=== PATIENT | female | born 1975 | race Caucasian/White ===

== ENCOUNTER 2018-08-09 10:44 | Observation (INO) ==
[2018-08-09] MEDS ORDERED: Furosemide 40 MG/4 ML VIAL IVP ONE (11:09)
--- NOTE | 2018-08-09 11:13 | Emergency Department Note ---
Disposition Clinical Impression: Congestive heart failure, COPD (chronic obstructive pulmonary disease) Disposition: Admitted As Inpatient Condition: Fair Time of Disposition: 14:28 SOB HPI - General Chief Complaint: ED Shortness of Breath/Dyspnea Stated Complaint: julio cesar/swollen legs Time Seen by Provider: 08/09/18 11:01 - History of Present Illness Patient is a 22-year-old female who presents here to the emergency room with complaint of shortness of breath. The patient states she did also having leg swelling for 1 week. She states that shortness of breath especially for the past 2 days. She denies any chest pain. She does have a cough she states is productive at times of green sputum. She denies any abdominal pain. She denies any other back pain. She denies any other or GI complaints. She does have a mild frontal headache that she put at a 6 on a 10 scale. Nothing else makes her symptoms from her headache standpoint better or worse. The patient states exertion does make her shortness of breath worse. The patient is resting here in the emergency room drinking Mountain Dew. The patient denies any focal weakness or numbness. The patient does complain of pain into her lower extremities from the swelling as well. Patient is chronically on 2 L nasal cannula oxygen at home. She denies any sore throat, nasal congestion. - Related Data Home Medications Medication Instructions Recorded Confirmed Albuterol Sulfate [Ventolin Hfa] 2 puff PO Q4H PRN 09/27/17 08/09/18 Gabapentin [Neurontin] 600 mg PO TID 09/27/17 08/09/18 Methadone Oral Concentrate 90 mg PO DAILY 04/03/18 08/09/18 [Methadone] Cholecalciferol (D-3) [Vitamin D] 1,000 unit PO DAILY 04/04/18 08/09/18 Fluticasone/Vilanterol [Breo 1 puff IH DAILY 04/04/18 08/09/18 Ellipta 100-25 Mcg INH] guaiFENesin [Mucus Relief ER] 600 mg PO BID PRN 04/04/18 08/09/18 Cetirizine HCl [All Day Allergy] 10 mg PO DAILY 06/21/18 08/09/18 Fluticasone Propionate Nasal 2 spray NS DAILY PRN 06/21/18 08/09/18 [Flonase] Saline Nasal [place] [[place] Nasal 2 spray NS DAILY 06/21/18 08/09/18 [place]] Atenolol [Tenormin] 50 mg PO DAILY 08/09/18 08/09/18 Furosemide [Lasix] 20 mg PO DAILY 08/09/18 08/09/18 Allergies Allergy/AdvReac Type Severity Reaction Status Date / Time No Known Allergies Allergy Verified 06/21/18 15:50 Review of Systems: As mentioned per history of present illness and as follows. Constitutional: Negative for chills or fever HENT: Negative for sore throat. Eyes: Negative for visual disturbance Respiratory: Positive for shortness of breath. Cardiovascular: Negative for palpitations. Gastrointestinal: Negative for abdominal pain Genitourinary: Negative for dysuria Musculoskeletal: Negative for back pain. Skin: Negative for rash. Neurological: Negative for focal weakness Psychiatric/Behavioral: Negative for depression Past Medical History - Past Medical History Medical history: Reports: COPD, hypertension Surgical history: Reports: Psychiatric history: Reports: anxiety, depression - Social History Smoking Status: Current every day smoker Smokeless Tobacco Status: No Alcohol use: Reports: none Drug use: Reports: opiates, prescription drug abuse Physical Exam PHYSICAL EXAM Constitutional: Well developed, Well nourished, No acute distress, Non-toxic appearance. HENT: Normocephalic, Atraumatic, Bilateral external ears normal, Oropharynx moist, No oral exudates, Nose normal. Neck- Normal range of motion, No tenderness, Supple. Eyes: PERRL, EOMI, Conjunctiva normal,. Cardiovascular: Regular rate and rhythm without clicks, rubs, gallops or murmurs. Respiratory: Normal breath sounds, mild respiratory distress, the patient has had no wheezing, scattered rhonchi noted, no crackles appreciated.. GI: Soft, nontender, no evidence of guarding or peritoneal signs. Bowel sounds are active. Musculoskeletal: Good range of motion in all major joints. No tenderness to palpation or major deformities noted. +5/5 strength noted to all extremities. Integument: Warm, Dry, No erythema, No rash. +2 pretibial edema bilateral lower extremities Neurologic: Alert & oriented x 3, Normal sensory function, No focal deficits noted. CN II-XII grossly intact. Course Vital Signs Temperature 97.7 F 08/09/18 10:50 Pulse Rate 80 08/09/18 10:50 Respiratory Rate 26 08/09/18 10:50 Blood Pressure 121/82 08/09/18 10:50 O2 Sat by Pulse Oximetry 75 08/09/18 10:50 Temperature 97.7 F 08/09/18 10:56 Pulse Rate 58 08/09/18 13:59 Respiratory Rate 16 08/09/18 13:59 Blood Pressure 134/88 08/09/18 13:59 O2 Sat by Pulse Oximetry 99 08/09/18 13:59 Oxygen Delivery Oxygen Delivery Nasal Cannula Shortness of Breath/Dyspnea - [facility] Narrative Medical decision making narrative: EKG was performed that showed sinus rhythm 65 beats a minute, no evidence of ST elevation or depression. [place] and QT intervals do appear to be within normal limits. Interpreted by myself. Patient was getting significantly hypoxic with ambulation. At this time the patient was also given Lasix, she was given breathing treatment. The patient however does not have sniffed and wheezing. Do not believe the patient has for steroids or antibiotics at this time. The patient has a negative chest x-ray. The patient does have a slightly elevated BNP. There is no evidence of cardiac ischemia. The patient at this point, do believe needs to be admitted for further evaluation regarding her hypoxia is fussy with exertion. The patient is on chronically 2 L. The patient is minimally retaining. Patient did have case discussed with the hospitalist and the patient will be admitted in stable condition to the floor. Final impression 1. Congestive heart failure 2. COPD 3. Mild hypercarbia - Lab Data Result diagrams: 08/09/18 11:16 08/09/18 11:16 Lab Results 08/09/18 08/09/18 08/09/18 Range/Units 11:16 11:16 11:16 WBC 7.5 (4.3-11.1) K/mcL RBC 5.16 H (3.82-4.97) M/mcL Hgb 15.4 (11.5-15.4) g/dL Hct 48.4 H (35.3-44.9) % MCV 93.8 (83.0-100.0) fL MCH 29.8 (28.0-33.3) pg MCHC 31.8 (31.6-35.5) g/dL RDW 14.7 H (11.5-14.5) % Plt Count 185 (140-400) K/mcL MPV 10.8 (9.4-12.4) fL Immature Gran % 0.3 (0-4) % Seg Neutrophils % 47.6 % Lymphocytes % 36.9 % Monocytes % 12.1 % Eosinophils % 2.4 % Basophils % 0.7 % Neutrophils # 3.6 (1.6-8.9) K/mcL Lymphocytes # 2.8 (0.6-4.6) K/mcL Monocytes # 0.9 (0.0-1.3) K/mcL Eosinophils # 0.2 (0.0-0.6) K/mcL Basophils # 0.1 (0.0-0.2) K/mcL PT 11.9 (9.4-12.1) Seconds INR 1.0 VBG pH (7.32-7.42) pH Units VBG pCO2 (41-51) mmHg VBG pO2 (25-50) mmHg VBG HCO3 (21-27) mEq/L Sodium 136 (136-145) mEq/L Potassium 3.9 (3.5-5.1) mEq/L Chloride 104 (98-107) mEq/L Carbon Dioxide 29 (23-29) mEq/L BUN 7 (6-20) mg/dL Creatinine 1.03 (0.60-1.20) mg/dL Est GFR ( Amer) > 60 (> 60) Est GFR (Non-Af Amer) 58 L (> 60) BUN/Creatinine Ratio 7 (6-26) Glucose 86 (70-105) mg/dL Calculated Osmolality 279 L (280-300) Lactic Acid (0.5-2.2) mmol/L Calcium 9.3 (8.6-10.3) mg/dL Troponin I < 0.03 (< 0.04) ng/mL B-Natriuretic Peptide (Less than 100) pg/mL 08/09/18 08/09/18 08/09/18 Range/Units 11:16 11:16 11:39 WBC (4.3-11.1) K/mcL RBC (3.82-4.97) M/mcL Hgb (11.5-15.4) g/dL Hct (35.3-44.9) % MCV (83.0-100.0) fL MCH (28.0-33.3) pg MCHC (31.6-35.5) g/dL RDW (11.5-14.5) % Plt Count (140-400) K/mcL MPV (9.4-12.4) fL Immature Gran % (0-4) % Seg Neutrophils % % Lymphocytes % % Monocytes % % Eosinophils % % Basophils % % Neutrophils # (1.6-8.9) K/mcL Lymphocytes # (0.6-4.6) K/mcL Monocytes # (0.0-1.3) K/mcL Eosinophils # (0.0-0.6) K/mcL Basophils # (0.0-0.2) K/mcL PT (9.4-12.1) Seconds INR VBG pH 7.34 (7.32-7.42) pH Units VBG pCO2 52 H (41-51) mmHg VBG pO2 71 H (25-50) mmHg VBG HCO3 28 H (21-27) mEq/L Sodium (136-145) mEq/L Potassium (3.5-5.1) mEq/L Chloride (98-107) mEq/L Carbon Dioxide (23-29) mEq/L BUN (6-20) mg/dL Creatinine (0.60-1.20) mg/dL Est GFR ( Amer) (> 60) Est GFR (Non-Af Amer) (> 60) BUN/Creatinine Ratio (6-26) Glucose (70-105) mg/dL Calculated Osmolality (280-300) Lactic Acid 0.6 (0.5-2.2) mmol/L Calcium (8.6-10.3) mg/dL Troponin I (< 0.04) ng/mL B-Natriuretic Peptide 110 H (Less than 100) pg/mL
[2018-08-09 11:31] LABS: Basophils # 0.1 K/mcL (0.0-0.2); Basophils % 0.7 %; Eosinophils # 0.2 K/mcL (0.0-0.6); Eosinophils % 2.4 %; Hematocrit 48.4 % (35.3-44.9); Hemoglobin 15.4 g/dL (11.5-15.4); Immature Granulocytes % 0.3 % (0-4); Lymphocytes # 2.8 K/mcL (0.6-4.6); Lymphocytes % 36.9 %; Mean Corpuscular HGB Conc 31.8 g/dL (31.6-35.5); Mean Corpuscular Hemoglobin 29.8 pg (28.0-33.3); Mean Corpuscular Volume 93.8 fL (83.0-100.0); Mean Platelet Volume 10.8 fL (9.4-12.4); Monocytes # 0.9 K/mcL (0.0-1.3); Monocytes % 12.1 %; Neutrophils # 3.6 K/mcL (1.6-8.9); Platelet Count 185 K/mcL (140-400); Red Blood Count 5.16 M/mcL (3.82-4.97); Red Cell Distribution Width 14.7 % (11.5-14.5); Segmented Neutrophils % 47.6 %; White Blood Count 7.5 K/mcL (4.3-11.1)
[2018-08-09] MEDS ORDERED: Ipratropium/Albuterol Neb 3 ML IH ONE (11:37)
[2018-08-09 11:42] LABS: VBG HCO3 28 mEq/L (21-27); VBG PCO2 52 mmHg (41-51); VBG PH 7.34 pH Units (7.32-7.42); VBG PO2 71 mmHg (25-50)
[2018-08-09 11:43] LABS: Prothrombin Time 11.9 Seconds (9.4-12.1)
[2018-08-09 11:51] LABS: BUN/Creatinine Ratio 7 (6-26); Blood Urea Nitrogen 7 mg/dL (6-20); Calcium 9.3 mg/dL (8.6-10.3); Carbon Dioxide 29 mEq/L (23-29); Chloride 104 mEq/L (98-107); Glucose 86 mg/dL (70-105); Osmolality,Calculated 279 (280-300); Potassium 3.9 mEq/L (3.5-5.1); Sodium 136 mEq/L (136-145); eGFR For African Americans > 60 (> 60); eGFR For Non-African Americans 58 (> 60)
[2018-08-09 11:52] LABS: Troponin I < 0.03 ng/mL (< 0.04)
--- NOTE | 2018-08-09 15:22 | Electrocardiograph Report ---
[address] [place], [place] [address] Test Date: 2018-08-09 Pat Name: Tessie De La Torre Department: [id number] Room: 3B37 Gender: F Linotyper: : 1975 Requested By: [id number] Order Number: [id number] Reading MD: Misty Betts Measurements Intervals [place] Rate: 65 P: 63 NM: 146 QRS: 73 QRSD: 107 T: 51 QT: 424 QTc: 441 Interpretive Statements Sinus rhythm Electronically Signed On 08-09-2018 15:20:36 EDT by Misty Betts
[2018-08-09] MEDS ORDERED: Naloxone 0.4 MG/ML INJ IVP PRN (16:55)
[2018-08-09] MEDS ORDERED: *HR* HYDROcodone/Acet 5/325 mg TABLET PO PRN (16:55)
[2018-08-09] MEDS ORDERED: Ondansetron 4 MG/2 ML VIAL IVP PRN (16:55)
[2018-08-09] MEDS ORDERED: Acetaminophen 325 MG TABLET PO PRN (16:55)
[2018-08-09] MEDS ORDERED: Albuterol 2.5 MG/3 ML NEBULIZER IH PRN (17:06)
--- NOTE | 2018-08-09 17:30 | Internal Med History&Physical ---
Date of Encounter: 08/09/18 Time of Encounter: 17:11 Internal Medicine - H&P: HPI Chief complaint: sob Admitted From: Emergency Dept Plans for Post Hospital Care: Home History of present illness: Ms. De La Torre is a 42 year old female astragal history of hypertension COPD oxygen dependent current smoker. Patient presented to [facility] ED with complaints of shortness of breath. Patient states she has been experiencing increasing shortness of breath over the past 2 weeks and has noticed lower extremity swelling laterally for the past week. She also states that she has gained approximately 7 pounds in the past week. She does have a productive cough with green sputum but no fever or abdominal pain. She states that they shortness of breath is worse on exertion and at times he has difficulty performing her ADLs. She does take Lasix for lower extremity swelling and states she has been compliant with medications. In the ER chest x-ray was completed which showed no acute process lab work did show a slightly elevation in BMP patient was given a dose of IV Lasix has been admitted for further workup and evaluation. Currently patient does not appear to be in any respiratory distress. She denies any chest pain or shortness of breath. I did discuss CODE STATUS with the patient would like to be full code. Past Med Surg Social Fam HX - Past Medical History Medical history: CHF, COPD, hypertension Additional medical history: unknown- pt refused to answer Psychiatric history: anxiety, depression - Past Surgical History Surgical History: - Social History Smoking Status: Current every day smoker Packs per day: 1 Smokeless Tobacco Status: No Alcohol use: none Drug use: none - Family History Mother Hx Family Respiratory Disorders: Yes Father Hx Family Cardiac Disorders: Yes Hx Family Respiratory Disorders: Yes Hx Family Endocrine Disorder: Yes Internal Medicine - H&P: Meds Albuterol Sulfate [Ventolin Hfa] 2 puff PO Q4H PRN 09/27/17 [History] Gabapentin [Neurontin] 600 mg PO TID 09/27/17 [History] Methadone Oral Concentrate [Methadone] 90 mg PO DAILY 04/03/18 [History] Cholecalciferol (D-3) [Vitamin D] 1,000 unit PO DAILY 04/04/18 [History] Fluticasone/Vilanterol [Breo Ellipta 100-25 Mcg INH] 1 puff IH DAILY 04/04/18 [ History] guaiFENesin [Mucus Relief ER] 600 mg PO BID PRN 04/04/18 [History] Cetirizine HCl [All Day Allergy] 10 mg PO DAILY 06/21/18 [History] Fluticasone Propionate Nasal [Flonase] 2 spray NS DAILY PRN 06/21/18 [History] Saline Nasal [place] [[place] Nasal [place]] 2 spray NS DAILY 06/21/18 [History] Atenolol [Tenormin] 50 mg PO DAILY 08/09/18 [History] Furosemide [Lasix] 20 mg PO DAILY 08/09/18 [History] Allergy/AdvReac Type Severity Reaction Status Date / Time No Known Allergies Allergy Verified 06/21/18 15:50 All Systems PM: A 10-system review of systems was performed and is negative for pertinent findings except as documented above in the HPI. - Constitutional Constitutional: weight gain - EENT Eyes: no change in vision, no discharge, no pain, no photophobia Ears: no ear discharge, no ear pain, no tinnitus Nose, mouth and throat: no dysphagia, no nasal discharge, no neck pain, no sore throat - Cardiovascular Cardiovascular ROS IM: dyspnea, dyspnea on exertion, edema, no chest pain, no diaphoresis, no lightheadedness, no palpitations, no syncope - Respiratory Respiratory: cough - Gastrointestinal Gastrointestinal: no abdominal pain, no diarrhea, no hematemesis, no hematoche dora, no melena, no nausea, no vomiting - Genitourinary Genitourinary: no change in urinary stream, no dysuria, no flank pain, no hematuria - Musculoskeletal Musculoskeletal ROS IM: no numbness, no tingling - Integumentary Integumentary IM: no rash, no unusual bruising - Neurological Neurological ROS: no confusion, no convulsions, no focal weakness, no numbness, no tingling, no tremor(s) - Hematologic/Lymphatic Hematologic/Lymphatic: no easy bruising - Constitutional Vitals: Temp Pulse Resp BP Pulse Ox 97.9 F 60 16 144/96 98 08/09/18 15:04 08/09/18 15:04 08/09/18 15:04 08/09/18 15:04 08/09/18 15:04 Exam: Skin: Free of rash and discoloration. Eyes: Sclera is white. There is no discharge from eyes. ENMT: Oral/pharyngeal mucosa is normal in appearance. There is no discharge from nose or ears. Respiratory: Some scattered rhonchi throughout CV: Heart is regular with no gallop or murmur. Bilateral lower extremity edema +1 GI: Abdomen is flat and soft with no palpable mass or visceromegaly. : There is no tenderness in patient's flanks bilaterally. Neuro exam: He has good strength in upper and lower extremities. He has normal eye movements. Psychiatric: He has normal affect. His thought process is appropriate to the situation. Internal Med - H&P Results - Labs CBC & Chem 7: 08/09/18 11:16 08/09/18 11:16 Labs: Short CBC 08/09/18 Range/Units 11:16 WBC 7.5 (4.3-11.1) K/mcL Hgb 15.4 (11.5-15.4) g/dL Hct 48.4 H (35.3-44.9) % Plt Count 185 (140-400) K/mcL Neutrophils # 3.6 (1.6-8.9) K/mcL BMP 08/09/18 11:16 Sodium 136 Potassium 3.9 Chloride 104 Carbon Dioxide 29 BUN 7 Creatinine 1.03 Glucose 86 Calcium 9.3 Cardiac Enzymes 08/09/18 Range/Units 11:16 Troponin I < 0.03 (< 0.04) ng/mL - ABG Interpretation ABG results: 08/09/18 11:39 VBG pH 7.34 VBG pCO2 52 H VBG pO2 71 H VBG HCO3 28 H - Impressions ITS Impressions Chest X-Ray 08/09/18 11:02 IMPRESSION: No acute process. D/ / Paresh Howard MD / Paresh oHward MD Interpreting Provider: Paresh Howard MD - Assessment and Plan (1) Congestive heart failure Current Visit: Yes Status: Suspected Assessment and plan: Patient has been experiencing increasing shortness of breath over the past 2 weeks and lower extremity edema bilaterally for past week. She is on Lasix for lower extremity swelling and states she has been taking it without any improvement Cardiac echo completed 06/21/18 mpressions: LVEF 60-65%. Mild left ventricular diastolic dysfunction. Normal right ventricular structure and function. Mild mitral regurgitation. Mild tricuspid regurgitation. No pulmonary hypertension. -We will continue with IV Lasix 40 mg daily -Fluid restriction Monitor intake and output daily weights Low Sodium diet Continuous cardiac monitoring Continue with oxygen Obtain limited echo We will check hepatic panel due to lower extremity swelling inpatient history of IV drug use-no history of hepatitis Qualifiers: Heart failure type: unspecified Heart failure chronicity: acute on chronic Qualified Code(s): I50.9 - Heart failure, unspecified (2) COPD (chronic obstructive pulmonary disease) Current Visit: No Status: Chronic Assessment and plan: Patient has a history of COPD and is oxygen dependent on 2 L nasal cannula at home. She does have cough with green sputum no fever chest x-ray with nothing acute. No wheezing noted does not appear to be in exacerbation at this time. We will continue with bronchodilators and oxygen to maintain SPO2 greater than 90% Qualifiers: COPD type: unspecified COPD Qualified Code(s): J44.9 - Chronic obstructive pulmonary disease, unspecified (3) DVT prophylaxis Current Visit: No Status: Acute Assessment and plan: Lovenox subcutaneous (4) Current every day smoker Current Visit: No Status: Chronic Assessment and plan: Patient states that she is trying to quit and she is down to half pack a day we will place a nicotine patch (5) HTN (hypertension) Current Visit: No Status: Chronic Assessment and plan: Currently controlled continue with home medications Qualifiers: Hypertension type: essential hypertension Qualified Code(s): I10 - Essential (primary) hypertension (6) History of substance abuse Current Visit: No Status: Chronic Assessment and plan: Patient states that she has a history of hair when use last used 2 years ago currently on methadone which we will continue We will check hepatic panel-states no history of hepatitis - Time Spent With Patient Total time spent is greater than 50% in coordination of care (as documented) at patient's floor/unit and/or counseling patient:
[2018-08-09] MEDS: Nicotine 14 MG PATCH.TD24 TD SCH (18:01)
[2018-08-09] MEDS: Gabapentin 300 MG CAPSULE PO SCH (23:00)
[2018-08-10 01:46] LABS: Basophils # 0.1 K/mcL (0.0-0.2); Basophils % 0.7 %; Eosinophils # 0.2 K/mcL (0.0-0.6); Eosinophils % 2.5 %; Hematocrit 44.4 % (35.3-44.9); Hemoglobin 13.9 g/dL (11.5-15.4); Immature Granulocytes % 0.3 % (0-4); Lymphocytes # 2.9 K/mcL (0.6-4.6); Lymphocytes % 42.9 %; Mean Corpuscular HGB Conc 31.3 g/dL (31.6-35.5); Mean Corpuscular Hemoglobin 29.6 pg (28.0-33.3); Mean Corpuscular Volume 94.5 fL (83.0-100.0); Mean Platelet Volume 11.2 fL (9.4-12.4); Monocytes # 0.9 K/mcL (0.0-1.3); Monocytes % 13.2 %; Neutrophils # 2.7 K/mcL (1.6-8.9); Platelet Count 162 K/mcL (140-400); Red Cell Distribution Width 14.6 % (11.5-14.5); Segmented Neutrophils % 40.4 %; White Blood Count 6.7 K/mcL (4.3-11.1)
[2018-08-10 02:28] LABS: Albumin 3.1 g/dL (3.5-5.7); Albumin/Globulin Ratio 1.3 (1.1-2.2); Bilirubin,Direct 0.1 mg/dL (0.0-0.2); Bilirubin,Indirect 0.3 mg/dL (0.0-1.2); Bilirubin,Total 0.4 mg/dL (0.3-1.0); Globulin 2.4 g/dL (2.4-3.5); Total Protein 5.5 g/dL (6.4-8.9)
[2018-08-10 02:30] LABS: BUN/Creatinine Ratio 7 (6-26); Blood Urea Nitrogen 9 mg/dL (6-20); Calcium 8.7 mg/dL (8.6-10.3); Carbon Dioxide 31 mEq/L (23-29); Chloride 102 mEq/L (98-107); Glucose 105 mg/dL (70-105); Magnesium 1.7 mg/dL (1.6-2.6); Osmolality,Calculated 285 (280-300); Potassium 3.7 mEq/L (3.5-5.1); Sodium 138 mEq/L (136-145); Troponin I < 0.03 ng/mL (< 0.04); eGFR For African Americans 59 (> 60); eGFR For Non-African Americans 48 (> 60)
[2018-08-10] MEDS ORDERED: *HR* Enoxaparin 40 MG/0.4 ML SYRINGE SQ SCH (07:00)
[2018-08-10] MEDS: Gabapentin 300 MG CAPSULE PO SCH ×3 (08:14→20:37)
[2018-08-10] MEDS: Methadone Oral Concentrate 50 MG/5 ML UDC PO SCH (08:14)
[2018-08-10] MEDS: Nicotine 14 MG PATCH.TD24 TD SCH (08:14)
[2018-08-10] MEDS: Budesonide/Formoterol 160/4.5 1 PUFF INH IH SCH ×2 (08:15→20:16)
[2018-08-10] MEDS ORDERED: Furosemide 40 MG/4 ML VIAL IVP SCH (09:00)
[2018-08-10 12:23] LABS: Calcium 8.9 mg/dL (8.6-10.3); Potassium 3.8 mEq/L (3.5-5.1)
[2018-08-10] MEDS ORDERED: 0.9 % Sodium Chloride 500 ML IVC SCH (15:15)
--- NOTE | 2018-08-10 15:21 | Internal Med Progress Note ---
Hospitalist Progress Note - Encounter Date of Encounter: 08/10/18 Time of Encounter: 10:00 - Subjective Interval History: patient was seen and examined at bedside Currently She states she feels much better and that her swelling has improved. Reviewed labwork including renal functions Informed her that we will monitor closely and encourage her to drink some water. Patient verbalizes understanding - Exam Vitals: Temp Pulse Resp BP Pulse Ox 98.1 F 63 16 94/67 96 08/10/18 14:49 08/10/18 14:49 08/10/18 14:49 08/10/18 14:49 08/10/18 14:49 Exam: Skin: Free of rash and discoloration. Eyes: Sclera is white. There is no discharge from eyes. ENMT: Oral/pharyngeal mucosa is normal in appearance. There is no discharge from nose or ears. Respiratory: Some scattered rhonchi throughout CV: Heart is regular with no gallop or murmur. Bilateral lower extremity edema +1 GI: Abdomen is flat and soft with no palpable mass or visceromegaly. : There is no tenderness in patient's flanks bilaterally. Neuro exam: He has good strength in upper and lower extremities. He has normal eye movements. Psychiatric: He has normal affect. His thought process is appropriate to the situation. - Assessment and Plan (1) Congestive heart failure Current Visit: Yes Status: Suspected Assessment and Plan: Patient has been experiencing increasing shortness of breath over the past 2 weeks and lower extremity edema bilaterally for past week. She is on Lasix for lower extremity swelling and states she has been taking it without any impr ovement Cardiac echo completed 06/21/18 mpressions: LVEF 60-65%. Mild left ventricular diastolic dysfunction. Normal right ventricular structure and function. Mild mitral regurgitation. Mild tricuspid regurgitation. No pulmonary hypertension. -We will continue with IV Lasix 40 mg daily -Fluid restriction Monitor intake and output daily weights Low Sodium diet Continuous cardiac monitoring Continue with oxygen Obtain limited echo We will check hepatic panel due to lower extremity swelling inpatient history of IV drug use-no history of hepatitis 08/10/2018 No edema noted to lower extremities we will monitor I/O Hold lasix for now dt ADDISON hepatic panel WNL (2) COPD (chronic obstructive pulmonary disease) Current Visit: No Status: Chronic Assessment and Plan: Patient has a history of COPD and is oxygen dependent on 2 L nasal cannula at home. She does have cough with green sputum no fever chest x-ray with nothing acute. No wheezing noted does not appear to be in exacerbation at this time. We will continue with bronchodilators and oxygen to maintain SPO2 greater than 90% 08/10 Patient appears stable cont with oxygen and bronchodilators (3) DVT prophylaxis Current Visit: No Status: Acute Assessment and Plan: Lovenox subcutaneous (4) Current every day smoker Current Visit: No Status: Chronic Assessment and Plan: Patient states that she is trying to quit and she is down to half pack a day we will place a nicotine patch (5) HTN (hypertension) Current Visit: No Status: Chronic Assessment and Plan: Currently controlled continue with home medications (6) History of substance abuse Current Visit: No Status: Chronic Assessment and Plan: Patient states that she has a history of hair when use last used 2 years ago currently on methadone which we will continue We will check hepatic panel-states no history of hepatitis 08/10 hepatic panel WNL - Time Spent with Patient Total time spent is greater than 50% in coordination of care (as documented) at patient's floor/unit and/or counseling patient: Internal Medicine: Result - Labs CBC & Chem 7: 08/10/18 00:49 08/10/18 11:17 Labs: Short CBC 08/10/18 Range/Units 00:49 WBC 6.7 (4.3-11.1) K/mcL Hgb 13.9 D (11.5-15.4) g/dL Hct 44.4 (35.3-44.9) % Plt Count 162 (140-400) K/mcL Neutrophils # 2.7 (1.6-8.9) K/mcL BMP 08/10/18 08/10/18 00:49 11:17 Sodium 138 140 Potassium 3.7 3.8 Chloride 102 98 Carbon Dioxide 31 H 34 H BUN 9 7 Creatinine 1.21 H 1.31 H Glucose 105 96 Calcium 8.7 8.9 Cardiac Enzymes 08/10/18 Range/Units 00:49 Troponin I < 0.03 (< 0.04) ng/mL Liver Function 08/10/18 Range/Units 00:49 Total Bilirubin 0.4 (0.3-1.0) mg/dL Direct Bilirubin 0.1 (0.0-0.2) mg/dL AST 18 (13-39) Units/L ALT 12 (7-52) Units/L Alkaline Phosphatase 87 (34-104) Units/L Albumin 3.1 L (3.5-5.7) g/dL - ABG Interpretation ABG results: PT/INR, D-dimer PT 11.9 Seconds (9.4-12.1) 08/09/18 11:16 Consult Discharge Plan - Plan Referrals: Yoana Moe [Primary Care Provider] - (1) Congestive heart failure Qualifiers: Heart failure type: unspecified Heart failure chronicity: acute on chronic Qualified Code(s): I50.9 - Heart failure, unspecified (2) COPD (chronic obstructive pulmonary disease) Qualifiers: COPD type: unspecified COPD Qualified Code(s): J44.9 - Chronic obstructive pulmonary disease, unspecified (5) HTN (hypertension) Qualifiers: Hypertension type: essential hypertension Qualified Code(s): I10 - Essential (primary) hypertension
[2018-08-11 05:59] LABS: BUN/Creatinine Ratio 9 (6-26); Blood Urea Nitrogen 11 mg/dL (6-20); Calcium 8.6 mg/dL (8.6-10.3); Carbon Dioxide 32 mEq/L (23-29); Chloride 102 mEq/L (98-107); Glucose 107 mg/dL (70-105); Osmolality,Calculated 282 (280-300); Potassium 4.1 mEq/L (3.5-5.1); Sodium 136 mEq/L (136-145); eGFR For African Americans > 60 (> 60); eGFR For Non-African Americans 50 (> 60)
[2018-08-11 07:38] VITALS: BP 112/65
[2018-08-11] MEDS: Gabapentin 300 MG CAPSULE PO SCH (08:11)
[2018-08-11] MEDS: Nicotine 14 MG PATCH.TD24 TD SCH (08:12)
[2018-08-11] MEDS: Methadone Oral Concentrate 50 MG/5 ML UDC PO SCH (08:12)
[2018-08-11] MEDS: Budesonide/Formoterol 160/4.5 1 PUFF INH IH SCH (08:27)
--- NOTE | 2018-08-11 10:59 | Discharge Summary ---
- NOTES TO OUTPATIENT PROVIDER Notes to Outpatient Provider: lower extremity swelling - patient was given IV lasix x1 - developed ADDISON - given small fluid bouls and ADDISON resolved. will need to monitor chemistry- advised patient to monitor daily weight low Na diet Orders not resulted at time of discharge: Pending orders 08/09/18 11:15 Culture,Blood [BC] Stat 08/10/18 15:23 EV limited echocardiogram Routine Date of Encounter: 08/11/18 Time of Encounter: 10:57 - Discharge Diagnosis (1) Congestive heart failure Priority: Primary Status: Suspected Qualifiers: Heart failure type: unspecified Heart failure chronicity: acute on chronic Qualified Code(s): I50.9 - Heart failure, unspecified (2) COPD (chronic obstructive pulmonary disease) Priority: Secondary Status: Chronic Qualifiers: COPD type: unspecified COPD Qualified Code(s): J44.9 - Chronic obstructive pulmonary disease, unspecified (3) Current every day smoker Priority: Secondary Status: Chronic (4) HTN (hypertension) Priority: Secondary Status: Chronic Qualifiers: Hypertension type: essential hypertension Qualified Code(s): I10 - Essential (primary) hypertension (5) History of substance abuse Priority: Secondary Status: Chronic Hospital course: Ms. De La Torre is a 42 year old female history of hypertension COPD oxygen dependent current smoker. Patient presented to [facility] ED with complaints of shortness of breath. Patient states she has been experiencing increasing shortness of breath over the past 2 weeks and has noticed lower extremity swelling laterally for the past week. She also states that she has gained approximately 7 pounds in the past week. She does have a productive cough with green sputum but no fever or abdominal pain. She states that they shortness of breath is worse on exertion and at times he has difficulty performing her ADLs. She does take Lasix for lower extremity swelling and states she has been compliant with medications. In the ER chest x-ray was completed which showed no acute process lab work did show a slightly elevation in BMP patient was given a dose of IV Lasix has been admitted. During admission patient did develop and AK I Lasix was held and patient was given small IV fluid bolus which did improve renal function. Lower extremity swelling has improved patient's ambulating without difficulty. Patient was advised to consume a low sodium diet as well as monitor daily weights continue with home Lasix. She will follow-up primary care provider monitor chemistry as an outpatient. Patient verbalizes understanding she is hemodynamically stable at this time and she is ready for discharge. - Time Spent with Patient Total time spent providing and/or coordinating discharge services: - Discharge Medications Prescriptions: Continued Albuterol Sulfate [Ventolin Hfa] 2 puff PO Q4H PRN PRN Reason: Shortness Of Breath Gabapentin [Neurontin] 600 mg PO TID Methadone Oral Concentrate [Methadone] 90 mg PO DAILY Cholecalciferol (D-3) [Vitamin D] 1,000 unit PO DAILY Fluticasone/Vilanterol [Breo Ellipta 100-25 Mcg INH] 1 puff IH DAILY guaiFENesin [Mucus Relief ER] 600 mg PO BID PRN PRN Reason: CHEST CONGESTION Cetirizine HCl [All Day Allergy] 10 mg PO DAILY Fluticasone Propionate Nasal [Flonase] 2 spray NS DAILY PRN PRN Reason: Allergy Symptoms Saline Nasal [place] [Briny [place]reezes Nasal [place]] 2 spray NS DAILY PRN PRN Reason: Congestion Furosemide [Lasix] 20 mg PO DAILY Atenolol [Tenormin] 50 mg PO DAILY Home Medications: Albuterol Sulfate [Ventolin Hfa] 2 puff PO Q4H PRN 09/27/17 [History] Gabapentin [Neurontin] 600 mg PO TID 09/27/17 [History] Methadone Oral Concentrate [Methadone] 90 mg PO DAILY 04/03/18 [History] Cholecalciferol (D-3) [Vitamin D] 1,000 unit PO DAILY 04/04/18 [History] Fluticasone/Vilanterol [Breo Ellipta 100-25 Mcg INH] 1 puff IH DAILY 04/04/18 [History] guaiFENesin [Mucus Relief ER] 600 mg PO BID PRN 04/04/18 [History] Cetirizine HCl [All Day Allergy] 10 mg PO DAILY 06/21/18 [History] Fluticasone Propionate Nasal [Flonase] 2 spray NS DAILY PRN 06/21/18 [History] Saline Nasal [place] [[place]ree[place] Nasal [place]] 2 spray NS DAILY PRN 06/21/18 [History] Atenolol [Tenormin] 50 mg PO DAILY 08/09/18 [History] Furosemide [Lasix] 20 mg PO DAILY 08/09/18 [History] Allergies/Adverse Reactions: Allergy/AdvReac Type Severity Reaction Status Date / Time No Known Allergies Allergy Verified 06/21/18 15:50 Date of admission: 08/09/18 13:58 Primary care physician: Yoana Moe Discharging clinician: Ligia Monteiro Anticipated date of discharge: 08/11/18 - Constitutional Vitals: Temp Pulse Resp BP Pulse Ox 97.4 F L 71 17 112/65 98 08/11/18 07:27 08/11/18 07:27 08/11/18 08:29 08/11/18 07:27 08/11/18 08:29 Exam: Skin: Free of rash and discoloration. Eyes: Sclera is white. There is no discharge from eyes. ENMT: Oral/pharyngeal mucosa is normal in appearance. There is no discharge from nose or ears. Respiratory: Normal breath sounds with no crackles and wheezes bilaterally. CV: Heart is regular with no gallop or murmur. GI: Abdomen is flat and soft with no palpable mass or visceromegaly. : There is no tenderness in patient's flanks bilaterally. Neuro exam: He has good strength in upper and lower extremities. He has normal eye movements. Psychiatric: He has normal affect. His thought process is appropriate to the situation. - Patient Status Disposition: Home, Self-Care Condition: Fair Functional capacity at discharge: independent ambulation - Discharge Instructions Follow Up With: Yoana Moe [Primary Care Provider] - - Diet and Activity Activity: increase activity as tolerated Diet: low salt diet
== END 2018-08-11 11:51 | disposition home or self-care (01) ==
LOC: EMEROOARM 10:44 → 3BNU 10:44
PROVIDERS: ADMIT Internal Medicine; ATTEND Internal Medicine

== ENCOUNTER 2020-05-10 18:42 | Observation (INO) ==
[2020-05-10] MEDS ORDERED: 0.9 % Sodium Chloride 1,000 ML IVC ONE (20:10)
[2020-05-10 20:32] LABS: Basophils # 0.1 K/mcL (0.0-0.2); Basophils % 0.5 %; Eosinophils # 0.3 K/mcL (0.0-0.6); Eosinophils % 2.5 %; Hemoglobin 12.4 g/dL (11.5-15.4); Immature Granulocytes % 0.2 % (0-4); Lymphocytes # 2.4 K/mcL (0.6-4.6); Lymphocytes % 21.5 %; Mean Corpuscular HGB Conc 30.2 g/dL (31.6-35.5); Mean Corpuscular Hemoglobin 28.8 pg (28.0-33.3); Mean Corpuscular Volume 95.1 fL (83.0-100.0); Mean Platelet Volume 10.6 fL (9.4-12.4); Monocytes # 0.9 K/mcL (0.0-1.3); Monocytes % 8.4 %; Neutrophils # 7.4 K/mcL (1.6-8.9); Platelet Count 204 K/mcL (140-400); Red Blood Count 4.31 M/mcL (3.82-4.97); Red Cell Distribution Width 12.8 % (11.5-14.5); Segmented Neutrophils % 66.9 %; White Blood Count 11.1 K/mcL (4.3-11.1)
[2020-05-10 20:48] LABS: Bilirubin,Urine Negative (Negative); Blood,Urine Negative (Negative); Clarity,Urine Clear (Clear); Color,Urine Light-Yellow (Yellow); Glucose,Urine (UA) Normal (Normal); Ketones,Urine Negative (Negative); Leukocyte Esterase,Urine Negative (Negative); Nitrite,Urine Negative (Negative); Protein,Urine Negative (Neg-Trace); Specific Gravity,Urine 1.017 (1.010-1.025); Urobilinogen,Urine Normal (Normal)
[2020-05-10 20:55] LABS: Alanine Aminotransferase 14 Units/L (7-52); Albumin 3.6 g/dL (3.5-5.7); Albumin/Globulin Ratio 1.1 (1.1-2.2); Alkaline Phosphatase 109 Units/L (34-104); Aspartate Amino Transferase 26 Units/L (13-39); BUN/Creatinine Ratio 12 (6-26); Bilirubin,Total 0.4 mg/dL (0.3-1.0); Blood Urea Nitrogen 12 mg/dL (6-20); Calcium 9.7 mg/dL (8.6-10.3); Carbon Dioxide 38 mEq/L (23-29); Chloride 95 mEq/L (98-107); Globulin 3.3 g/dL (2.4-3.5); Glucose 113 mg/dL (70-105); Osmolality,Calculated 283 (280-300); Potassium 4.5 mEq/L (3.5-5.1); Sodium 136 mEq/L (136-145); Total Protein 6.9 g/dL (6.4-8.9); eGFR For African Americans > 60 (> 60); eGFR For Non-African Americans 58 (> 60)
[2020-05-10 21:57] LABS: Troponin I < 0.03 ng/mL (< 0.04)
[2020-05-10] MEDS ORDERED: Ipratropium/Albuterol Neb 3 ML IH ONE (22:17)
[2020-05-10] MEDS ORDERED: Isovue-370 500 ML BOTTLE IVP ONE (23:35)
[2020-05-11] MEDS ORDERED: Morphine Sulfate 2 MG/ML SYRINGE IVP ONE ×2 (01:03→02:44)
[2020-05-11] MEDS ORDERED: *HR* Heparin 5,000 UNIT/ML VIAL IVP ONE (02:46)
[2020-05-11] MEDS ORDERED: Heparin 25,000UNIT/250ML 1/2NS 25,000 UNIT/250 ML IV.SOLN IVC SCH ×2 (03:00→16:30)
[2020-05-11 03:31] LABS: Heparin anti-factor XA UFH < 0.04 IU/mL (0.30-0.70); Prothrombin Time 12.1 Seconds (9.4-12.1)
[2020-05-11] MEDS ORDERED: Albuterol 2.5 MG/3 ML NEBULIZER IH PRN (04:45)
[2020-05-11] MEDS ORDERED: MethylPREDNISolone 40 MG/ML VIAL IVP ONE ×2 (04:45→15:49)
[2020-05-11] MEDS ORDERED: Acetaminophen 325 MG TABLET PO PRN (04:54)
[2020-05-11] MEDS ORDERED: Melatonin 3 MG TABLET PO PRN (04:54)
[2020-05-11] MEDS ORDERED: Naloxone 0.4 MG/ML INJ IVP PRN (04:54)
[2020-05-11] MEDS ORDERED: Ondansetron 4 MG/2 ML VIAL IVP PRN (04:54)
[2020-05-11] MEDS: Azithromycin 250 MG TABLET PO SCH (05:57)
[2020-05-11] MEDS: *HR* OxyCODONE Immed Rel 5 MG TABLET PO PRN ×3 (05:57→19:34)
[2020-05-11] MEDS ORDERED: Albuterol 2.5 MG/3 ML NEBULIZER IH SCH (08:00)
[2020-05-11] MEDS ORDERED: Ipratropium/Albuterol Neb 3 ML IH PRN (08:09)
[2020-05-11] MEDS: *HR* HYDROcodone/Acet 5/325 mg TABLET PO PRN ×2 (08:09→15:43)
[2020-05-11] MEDS: atenoloL 50 MG TABLET PO SCH (08:10)
[2020-05-11] MEDS: Gabapentin 300 MG CAPSULE PO SCH ×4 (08:10→21:05)
[2020-05-11] MEDS: Furosemide 20 MG TABLET PO SCH (08:10)
[2020-05-11 10:00] LABS: Mean Corpuscular HGB Conc 30.2 g/dL (31.6-35.5); Mean Corpuscular Hemoglobin 28.6 pg (28.0-33.3); Mean Corpuscular Volume 94.7 fL (83.0-100.0); Mean Platelet Volume 10.7 fL (9.4-12.4); Platelet Count 205 K/mcL (140-400); Red Blood Count 4.54 M/mcL (3.82-4.97); Red Cell Distribution Width 12.8 % (11.5-14.5); White Blood Count 10.5 K/mcL (4.3-11.1)
[2020-05-11] MEDS ORDERED: Perflutren Lipid Microsphere 1.3 ML in 0.9 % Sodium Chloride 8.7 ML IVP PRN (10:09)
[2020-05-11 10:13] LABS: BUN/Creatinine Ratio 11 (6-26); Blood Urea Nitrogen 10 mg/dL (6-20); Calcium 9.8 mg/dL (8.6-10.3); Carbon Dioxide 35 mEq/L (23-29); Chloride 98 mEq/L (98-107); Glucose 113 mg/dL (70-105); Osmolality,Calculated 282 (280-300); Potassium 4.1 mEq/L (3.5-5.1); Sodium 136 mEq/L (136-145); eGFR For African Americans > 60 (> 60); eGFR For Non-African Americans > 60 (> 60)
[2020-05-11 10:24] LABS: Troponin I 0.04 ng/mL (< 0.04)
[2020-05-11] MEDS: Ipratropium/Albuterol Neb 3 ML IH SCH ×5 (10:32→23:40)
[2020-05-11] MEDS: Budesonide/Formoterol 160/4.5 1 PUFF INH IH SCH ×2 (10:59→19:43)
[2020-05-11] MEDS ORDERED: Saline Nasal Spray 44 ML BOTTLE NS PRN ×2 (12:00→15:46)
[2020-05-11] MEDS: Valsartan 80 MG TABLET PO SCH (17:26)
[2020-05-11] MEDS: *HR* Rivaroxaban 15 MG TABLET PO SCH (21:05)
[2020-05-12] MEDS: *HR* OxyCODONE Immed Rel 5 MG TABLET PO PRN ×2 (01:34→14:15)
[2020-05-12] MEDS: Ipratropium/Albuterol Neb 3 ML IH SCH ×5 (03:16→20:09)
[2020-05-12 04:37] LABS: Basophils % 0.1 %; Hematocrit 37.4 % (35.3-44.9); Hemoglobin 11.8 g/dL (11.5-15.4); Immature Granulocytes % 0.9 % (0-4); Lymphocytes # 0.6 K/mcL (0.6-4.6); Lymphocytes % 6.7 %; Mean Corpuscular HGB Conc 31.6 g/dL (31.6-35.5); Mean Corpuscular Hemoglobin 29.1 pg (28.0-33.3); Mean Corpuscular Volume 92.1 fL (83.0-100.0); Mean Platelet Volume 10.8 fL (9.4-12.4); Monocytes # 0.4 K/mcL (0.0-1.3); Monocytes % 4.5 %; Platelet Count 192 K/mcL (140-400); Red Blood Count 4.06 M/mcL (3.82-4.97); Red Cell Distribution Width 12.8 % (11.5-14.5); Segmented Neutrophils % 87.8 %; White Blood Count 9.1 K/mcL (4.3-11.1)
[2020-05-12 04:59] LABS: BUN/Creatinine Ratio 16 (6-26); Blood Urea Nitrogen 13 mg/dL (6-20); Calcium 9.3 mg/dL (8.6-10.3); Carbon Dioxide 32 mEq/L (23-29); Chloride 96 mEq/L (98-107); Glucose 195 mg/dL (70-105); Osmolality,Calculated 287 (280-300); Potassium 3.7 mEq/L (3.5-5.1); Sodium 136 mEq/L (136-145); eGFR For African Americans > 60 (> 60); eGFR For Non-African Americans > 60 (> 60)
[2020-05-12 05:27] LABS: Estimated Average Glucose 114 mg/dl; Hemoglobin A1C 5.6 %
[2020-05-12] MEDS: Budesonide/Formoterol 160/4.5 1 PUFF INH IH SCH ×2 (07:43→20:09)
[2020-05-12] MEDS ORDERED: predniSONE 20 MG TABLET PO SCH (09:00)
[2020-05-12] MEDS ORDERED: Methadone Oral Concentrate 50 MG/5 ML UDC PO SCH (09:00)
[2020-05-12] MEDS ORDERED: NON-FORMULARY MEDICATION 1 EACH EACH (Fluticasone/Umeclidin/Vilanter [Trelegy Ellipta 100- IH SCH (09:00)
[2020-05-12] MEDS ORDERED: ROFLUMILAST 250 MCG PO SCH (09:00)
[2020-05-12] MEDS ORDERED: Valsartan 80 MG TABLET PO SCH (09:00)
[2020-05-12] MEDS: atenoloL 50 MG TABLET PO SCH (09:47)
[2020-05-12] MEDS: Gabapentin 300 MG CAPSULE PO SCH ×3 (09:47→19:58)
[2020-05-12] MEDS: Valsartan 80 MG TABLET PO SCH (09:48)
[2020-05-12] MEDS: Furosemide 20 MG TABLET PO SCH (09:48)
[2020-05-12] MEDS: *HR* Rivaroxaban 15 MG TABLET PO SCH ×2 (09:48→19:58)
[2020-05-12] MEDS: Azithromycin 250 MG TABLET PO SCH (09:48)
[2020-05-12] MEDS: Methadone Oral Concentrate 50 MG/5 ML UDC PO SCH ×2 (11:15→19:56)
[2020-05-12] MEDS ORDERED: Azithromycin 250 MG TABLET PO SCH (15:46)
[2020-05-12 18:57] VITALS: BP 155/88
== END 2020-05-12 20:22 | disposition home or self-care (01) ==
LOC: CDU 18:42 → EMEROOARM 18:42 → SUATTDRO 05-11 03:49 → CDU 05-11 04:39 → 3ANU 05-11 15:07
PROVIDERS: ADMIT Family Medicine; ATTEND Pharmacist